=== PATIENT | female | born 1970 | race Caucasian/White ===

== ENCOUNTER 2024-01-03 09:45 | Emergency (ER) | payer SELFPAY ==
[~2024-01-03 09:45] MED LIST: Iopamidol 370 76% 100 ML VIAL ONE
[2024-01-03] MEDS ORDERED: Ketorolac Tromethamine 30 MG (1 mL) VIAL ONE (10:17)
[2024-01-03] MEDS ORDERED: Sodium Chloride 0.9% 1,000 ML ONE (10:18)
[2024-01-03 10:25] LABS: Bilirubin Negative (Negative); Blood, Urine Trace (Negative); Clarity Clear (Clear); Glucose, Urine (Dipstick) Negative (Negative); Ketone, Urine Negative (Negative); Leukocyte Negative (Negative); Nitrite Negative (Negative); Protein, Urine (Dipstick) Negative (Neg-Trace); Urobilinogen 0.2 mg/dL (Less than 2)
[2024-01-03] MEDS ORDERED: Promethazine HCl 25 MG/ML VIAL ONE (10:26)
[2024-01-03 10:36] LABS: CAUTI Indications for Culture Pelvic or flank pain; RBC/HPF 0-3 HPF (0-3); WBC/HPF 0-3 HPF (0-3)
[2024-01-03 10:37] LABS: Bacteria/HPF Rare-Few HPF (None Seen); Squamous Epithelial None Seen HPF (0-3); Urine Culture Reflex No No
[2024-01-03 10:45] LABS: #Basophils 0.1 thou/uL (0.0-0.2); #Eosinphils 0.1 thou/uL (0.0-0.7); #Lymphocytes 2.3 thou/uL (1.20-3.40); #Monocytes 0.6 thou/uL (0.11-0.59); #Neutrophils 4.1 thou/uL (1.40-6.50); %Basophils 1.7 % (0.0-1.0); %Lymphocytes 32.1 % (21.0-51.0); %Monocytes 8.5 % (0.0-10.0); %Neutrophils 56.8 % (42.0-75.0); Hematocrit 44.6 % (36.0-47.0); Hemoglobin 14.9 g/dL (12.0-16.0); Mean Corpuscular HGB CONC 33.4 g/dL (32.0-36.0); Mean Corpuscular Hemoglobin 30.4 pg (27.0-31.0); Mean Corpuscular Volume 90.9 fl (78.0-98.0); Mean Platelet Volume 6.5 fL (7.4-10.4); Platelet Count 330 10x3/uL (130-400); RBC Distribution Width 11.1 % (11.5-14.5); White Blood Cell (WBC) Count 7.2 10x3/uL (4.8-10.8)
[2024-01-03 10:57] LABS: ALT (SGPT) 13 U/L (8-55); AST (SGOT) 19 U/L (5-34); Alkaline Phosphatase 71 U/L (40-110); Anion Gap 16 mmol/L (10-20); BUN (Urea Nitrogen) 10 mg/dL (9.8-20.1); Bilirubin, Total 0.3 mg/dL (0.2-1.2); Calc. Creatinine Clearance 0 mL/min (70-130); Calcium 9.9 mg/dL (7.8-10.44); Carbon Dioxide 23 mmol/L (22-29); Chloride 104 mmol/L (98-107); Estimated GFR 93; Globulin 3.1 g/dL (2.4-3.5); Glucose 75 mg/dL (70-105); Potassium 4.2 mmol/L (3.5-5.1); Protein, Total 7.1 g/dL (6.0-8.3); Sodium 139 mmol/L (136-145)
== END 2024-01-03 12:30 | disposition home or self-care (01) ==
LOC: NAV ERS 09:45
DX: M54.50 Low back pain, unspecified (principal); R10.31 Right lower quadrant pain; R10.32 Left lower quadrant pain; I10 Essential (primary) hypertension; F17.210 Nicotine dependence, cigarettes, uncomplicated; Z79.899 Other long term (current) drug therapy
CPT/HCPCS: 74177; 80053; 81001; 85025; 96365; 96375; J1885; J2550; J7030; Q9967